=== PATIENT | female | born 1980 | race Caucasian/White ===

== ENCOUNTER 2020-05-25 16:07 | Emergency (ER) | payer MEDICAID ==
[~2020-05-25] VITALS: Ht 172.7 cm; Wt 63.6 kg
[2020-05-25 16:12] VITALS: BP 138/81
[2020-05-25] MEDS ORDERED: METR70GE16 VG (16:37)
[2020-05-25] MEDS ORDERED: LACT1CAP60 PO (16:37)
[2020-05-25] MEDS ORDERED: METR-159 PO (16:47)
[2020-05-25 16:49] LABS: CLARITY,URINE CLEAR (Clear); GLUCOSE, URINE NEGATIVE (Neg); KETONES,URINE NEGATIVE (Neg); LEUKOCYTE ESTERASE ,URINE TRACE (Neg); NITRITES, URINE NEGATIVE (Neg); OCCULT BLOOD,URINE NEGATIVE (Neg); PH,URINE 5.5 (4.8-8.0); PROTEIN,URINE NEGATIVE (Neg)
[2020-05-25 16:54] LABS: COLOR,URINE DARK YELLOW (Yellow); UA COLLECTION TYPE CLN CATCH MIDSTREAM
[2020-05-25 16:57] LABS: BACTERIA,URINE 1+ /HPF (Neg); MUCUS STRANDS FEW /LPF (Neg); RBC,URINE 0-2 /HPF (0-2); SQUAMOUS EPITHELIAL CELL,UR FEW /LPF (FEW); WBC,URINE 20-30 /HPF (0-4)
[2020-05-25 16:58] LABS: CAL OXALATE CRYSTALS 3+ /HPF (NEGATIVE); TRICHOMONAS,URINE FEW /HPF (NEGATIVE)
[2020-05-25] MEDS ORDERED: metroNIDAZOLE 500mg tablet PO ONE (17:10)
== END 2020-05-25 17:19 | disposition home or self-care (01) ==
LOC: ER 16:08
DX: N76.0 Acute vaginitis (principal); R21 Rash and other nonspecific skin eruption; Z79.899 Other long term (current) drug therapy
CPT/HCPCS: 81001; 87077; 87088; 87186; 99283; J3490

== ENCOUNTER 2020-11-21 18:32 | Emergency (ER) | payer MEDICAID ==
[~2020-11-21] VITALS: Ht 172.7 cm; Wt 68.2 kg
[~2020-11-21 18:32] MED LIST: LACT1CAP60 PO
[2020-11-21] MEDS ORDERED: PENI-88 PO (19:26)
[2020-11-21 19:31] VITALS: BP 179/99
== END 2020-11-21 19:33 | disposition home or self-care (01) ==
LOC: ER 18:32
DX: K04.7 Periapical abscess without sinus (principal); K08.89 Other specified disorders of teeth and supporting structures; M54.2 Cervicalgia; F17.200 Nicotine dependence, unspecified, uncomplicated; Z79.2 Long term (current) use of antibiotics; Z79.899 Other long term (current) drug therapy
CPT/HCPCS: 99283

== ENCOUNTER 2021-05-04 23:07 | Emergency (ER) | payer MEDICAID ==
[~2021-05-04] VITALS: Ht 172.7 cm; Wt 85.0 kg
[2021-05-04 23:11] VITALS: BP 154/90
[2021-05-04] MEDS ORDERED: PENI-88 PO (23:31)
== END 2021-05-04 23:36 | disposition home or self-care (01) ==
LOC: ER 23:07
DX: K08.89 Other specified disorders of teeth and supporting structures (principal); Z79.2 Long term (current) use of antibiotics; Z79.899 Other long term (current) drug therapy
CPT/HCPCS: 99283

== ENCOUNTER 2021-05-18 18:18 | Emergency (ER) | payer MEDICAID ==
[~2021-05-18] VITALS: Ht 167.6 cm; Wt 75.0 kg
[2021-05-18] MEDS ORDERED: AZIT500T9 PO (18:33)
[2021-05-18 18:41] VITALS: BP 156/89
== END 2021-05-18 19:52 | disposition home or self-care (01) ==
LOC: ER 18:19
DX: A08.4 Viral intestinal infection, unspecified (principal); Z20.822 Contact with and (suspected) exposure to COVID-19
CPT/HCPCS: 87635; 99283; C9803

== ENCOUNTER → 2021-05-25 | Emergency (ER) | payer MEDICAID ==
[~2021-05-25] VITALS: Ht 172.7 cm; Wt 75.0 kg
[~2021-05-25] MED LIST changes: +AZIT500T9 PO
[2021-05-25 14:42] VITALS: BP 131/78
== END | disposition left against medical advice (07) ==
LOC: ER 14:30
DX: Z02.89 Encounter for other administrative examinations (principal); Z53.21 Procedure and treatment not carried out due to patient leaving prior to being seen by health care provider

== ENCOUNTER 2021-11-12 19:42 | Emergency (ER) | payer MEDICAID ==
[~2021-11-12] VITALS: Ht 172.7 cm; Wt 190.8 kg
[2021-11-12] MEDS ORDERED: NAPR-56 PO (20:52)
[2021-11-12] MEDS ORDERED: TRAM50TA2 PO (20:52)
--- NOTE | 2021-11-12 21:13 | NUR ---
PER [place], FX FINGER. A FINGER SPLINT WAS APPLIED BY TECH. JUDGE TO HOME WITH FLU INST.
[2021-11-12 21:30] VITALS: BP 153/88
== END 2021-11-12 21:32 | disposition home or self-care (01) ==
LOC: EEVIPCON 19:45 → ER 19:45
DX: S06.0X0A Concussion without loss of consciousness, initial encounter (principal); S62.634A Displaced fracture of distal phalanx of right ring finger, initial encounter for closed fracture; H11.32 Conjunctival hemorrhage, left eye; Z79.2 Long term (current) use of antibiotics; Y04.0XXA Assault by unarmed brawl or fight, initial encounter; Y93.89 Activity, other specified; Y92.89 Other specified places as the place of occurrence of the external cause; Y99.9 Unspecified external cause status
CPT/HCPCS: 29130; 70450; 70486; 73130; 99284

== ENCOUNTER 2023-10-16 22:51 | Emergency (ER) | payer MEDICAID ==
[~2023-10-16] VITALS: Ht 172.7 cm; Wt 88.6 kg
[2023-10-16 22:58] VITALS: BP 156/91; PULSE 86; RESP 17; TEMP 97.9; O2SAT 99
[2023-10-17] MEDS ORDERED: DOXYCYCLINE 100MG CAPSULE PO STA (02:38)
[2023-10-17] MEDS ORDERED: bacitracin 15gm ointment TP ONE (02:40)
[2023-10-17] MEDS ORDERED: DOXY-356 PO (02:44)
[2023-10-17] MEDS ORDERED: MUPI22OI30 TOP (02:44)
[2023-10-17] MEDS ORDERED: TOLN108P2 TOP (02:45)
== END 2023-10-17 03:04 | disposition home or self-care (01) ==
LOC: ER 22:52
DX: B37.2 Candidiasis of skin and nail (principal); Z79.2 Long term (current) use of antibiotics; Z79.899 Other long term (current) drug therapy
CPT/HCPCS: 99283